=== PATIENT | male | born 1965 | race Caucasian/White ===

== ENCOUNTER → 2018-03-11 | Outpatient (CLI) | payer BC ==
--- NOTE | 2018-03-13 19:21 | MR ---
EXAMINATION TYPE: MR knee RT wo con DATE OF EXAM: 03/11/2018 COMPARISON: Outside exam 02/21/2018 HISTORY: 52-year-old male with right knee pain x 3-4 weeks, injured playing hockey TECHNIQUE: Multiplanar, multisequence imaging of the right knee is performed without IV contrast. FINDINGS: ACL, PCL, and LCL complex are intact. There is extensive edematous thickening and soft tissue swelling on either side of the MCL with intac t fibers visualized. There is diffuse tear of the medial meniscus with a large bucket-handle component flipped into the in tercondylar region. No discrete chondral injury. Lateral meniscus and lateral compartment articular cartilage are maintained. Patellofemoral compartment articular cartilage volume is maintained. There is a small knee joint effusion and findings suggesting a ruptured Diaz's cyst. Anterior soft t issue swelling is also present. Extensor mechanism is intact. Normal popliteal artery anatomy with very mild muscular atrophy. No suspicious bone marrow replacemen t. IMPRESSION: 1. Diffuse tear of the medial meniscus with a large bucket-handle component flipped into the intercon dylar region. 2. Grade 2 MCL sprain. 3. Small knee joint effusion with a ruptured Diaz's cyst along with anterior soft tissue swelling.
== END ==
LOC: RADMRIMAIN 16:40
PROVIDERS: ATTEND Orthopaedic Surgery
DX: S83.211A Bucket-handle tear of medial meniscus, current injury, right knee, initial encounter (principal); S83.411A Sprain of medial collateral ligament of right knee, initial encounter; M71.21 Synovial cyst of popliteal space [Baker], right knee

== ENCOUNTER 2018-04-15 08:18 | Day surgery (SDC) | payer BC ==
--- NOTE | 2018-04-14 09:30 | HP ---
HISTORY AND PHYSICAL CHIEF COMPLAINT: Right knee pain. 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 He felt a tear in his knee. He notes anterior and medial pain, worse with walking. He notes popping and giving way. He has been taking ibuprofen for this. PAST MEDICAL HISTORY: Negative. PAST SURGICAL HISTORY: Negative. CURRENT ALLERGIES: Ibuprofen. ALLERGIES: He denies drug allergies. FAMILY HISTORY: Significant for heart disease. SOCIAL HISTORY: Significant for 1 pack per day tobacco use. REVIEW OF SYSTEMS: Sixteen-point review of systems otherwise reviewed and is noncontributory. PHYSICAL EXAMINATION: On examination, the patient is approximately 5 feet 6 inches, 145 pounds of mesomorphic habitus. HEENT exam is nonfocal. Neck is supple. He has painless passive motion of the right hip. Straight leg raise is negative. Active motion right knee -8 to 125 degrees of flexion. He has mild effusion. He is tender about the medial joint line. Collaterals are stable, Chago's negative, Meir's elicits medial pain. His distal neurovascular exam appears to be intact in the right lower extremity. MRI report 03/11/2018 of the right knee shows a bucket-handle tear of the medial meniscus. IMPRESSION: Right knee internal derangement with symptomatic medial meniscal tear. RECOMMENDATIONS: I talked to the patient at length regarding his condition and treatment options. At this point, he is having significant pain and mechanical symptoms after this acute injury that limit him. After thorough discussion, he opts to proceed with surgery. We will plan to proceed with arthroscopic evaluation with possible partial medial meniscectomy. Risks and benefits were discussed at length in layman's terms. We will likely perform that as an outpatient procedure. MMODL / IJN: [id number] /
[2018-04-14 09:49] VITALS: BMI 23.8
[~2018-04-15 08:18] MED LIST: DEXAMETHASONE SOD PHOSPHATE 10 MG/ML 1 ML VIAL IV ONE; LACTATED RINGERS 1,000 ML IV SCH; MIDAZOLAM (PF) 2 MG/2 ML VIAL IV PRN; ONDANSETRON 4 MG/2 ML VIAL IVP ONE; SCOPOLAMINE 1.5MG/72HR PATCH TRANSDERM ONE; ceFAZolin IN SWFI 2 GM/20 ML SYRINGE IVP ONE
[2018-04-15] MEDS ORDERED: LIDOCAINE 1% 20 ML VIAL (10MG/ML) FOR IV START INTRADERMA ONE (08:56)
[2018-04-15] MEDS ORDERED: fentaNYL (PF) 50 MCG/ML 2 ML AMP ONE (09:55)
[2018-04-15] MEDS ORDERED: KETOROLAC 30 MG/ML 1 ML VIAL ONE (09:55)
[2018-04-15] MEDS ORDERED: LIDOCAINE 1% INJ 10MG/ML (20 ML MDV) ONE (09:55)
[2018-04-15] MEDS ORDERED: MIDAZOLAM 2 MG/2 ML VIAL ONE (09:55)
[2018-04-15] MEDS ORDERED: GLYCOPYRROLATE 0.2 MG/ML 2 ML VIAL ONE (09:55)
[2018-04-15] MEDS ORDERED: PROPOFOL 10 MG/ML 20 ML VIAL IV ONE (09:55)
[2018-04-15] MEDS ORDERED: EPINEPHrine (PF) 1 ML in SODIUM CHLORIDE 0.9% IRRIGATIO 3,000 ML IRRIGATION ONE ×4 (09:57)
--- NOTE | 2018-04-15 10:48 | P.OP ---
Date of Procedure: 04/15/18 Preoperative Diagnosis: Right knee internal derangement Postoperative Diagnosis: Bucket handle tear right knee medial meniscus, large patellofemoral plica Procedure(s) Performed: Right knee arthroscopic partial medial meniscectomy/plica resection Anesthesia: TANIA Surgeon: Charly Medeiros Estimated Blood Loss (ml): 10 Pathology: none sent Condition: stable Disposition: PACU Indications for Procedure: The patient's a 52-year-old male who presents with progressive right knee pain and mechanical symptoms despite conservative measures. A discussion of the risks and benefits of operative intervention versus continued conservative measures was made with the patient. He opted to proceed with surgery. Operative risks to include infection, neurovascular injury, development of blood clots, possible incomplete resolution of symptoms, possible worsening of symptoms and need for subsequent procedures was discussed. Informed consent was obtained. Operative Findings: As below Description of Procedure: The patient was brought to the operating room, and after induction of general anesthesia examined the right knee. Collaterals were stable, Chago was negative, and posterior drawer was negative. The right lower extremity was prepped and draped in a normal fashion. A superior lateral portal was made through a 3 mm skin incision superior and lateral to the patella. This was used for outflow. A lateral portal was made through a 5 mm vertical skin incision lateral to the patella tendon above the joint line. Diagnostic arthroscopy was performed. On inspection of the medial compartment there was a large bucket-handle tear of the medial meniscus in the white/red junction. This was not amenable to repair. This was debrided back to stable base with straight baskets and a motorized shaver. On inspection of the notch, the anterior cruciate ligament appeared to be intact. On inspection of the lateral compartment no significant meniscal or articular cartilage pathology was noted. On inspection of the patellofemoral articulation there was a large medial patellofemoral plica. This was debrided back to a stable base with a motorized shaver. The gutters were clear debris. The knee was then thoroughly irrigated. The portals were closed with Steri-Strips. A sterile dressing was applied in addition to a compression stocking. The patient was awoken from general anesthesia and transferred to recovery room in good condition. Blood loss was estimated at 10 mL. No complications were incurred.
[2018-04-15 10:52] VITALS: RESP 18; TEMP 97.8
[2018-04-15] MEDS: HYDROmorphone 0.5 MG/0.5 ML SYRINGE IVP PRN ×4 (10:53→11:21)
[2018-04-15] MEDS ORDERED: HYDROcodone/APAP 5-325MG 1 EACH TAB PO ONE (11:50)
[2018-04-15 12:10] VITALS: BP 177/81; PULSE 60
== END 2018-04-15 12:33 | disposition home or self-care (01) ==
LOC: OR 08:18
PROVIDERS: ATTEND Orthopaedic Surgery
DX: S83.211A Bucket-handle tear of medial meniscus, current injury, right knee, initial encounter (principal); W19.XXXA Unspecified fall, initial encounter; Y93.22 Activity, ice hockey; M67.51 Plica syndrome, right knee; E78.5 Hyperlipidemia, unspecified; F17.210 Nicotine dependence, cigarettes, uncomplicated; Z79.899 Other long term (current) drug therapy
CPT/HCPCS: 29881; J2250; J1100; J2405; J0171; J2001; J3010; J1885; J2704; J1170; J0690